=== PATIENT | female | born 1995 | race American Indian/Alaskan Native ===

== ENCOUNTER 2019-01-07 12:29 | Emergency (ER) | payer OTHER, SELFPAY ==
--- NOTE | 2019-01-07 12:43 | Emergency Department Report ---
Blank Doc - Documentation Documentation: This is a 23-year-old female that presents with generalized weakness, vomiting. Was diagnosed with UTI and taking Bactrim. Stated is getting worse. This initial assessment/diagnostic orders/clinical plan/treatment(s) is/are subject to change based on patient's health status, clinical progression and re- assessment by fellow clinical providers in the ED. Further treatment and workup at subsequent clinical providers discretion. Patient/guardians urged not to elope from the ED as their condition may be serious if not clinically assessed and managed. Initial orders include: 1- Patient sent to MAIN ED for further evaluation and treatment 2- code sepsis initiated 3- labs 4- protocol initiated
[2019-01-07] MEDS ORDERED: IBUPROFEN PO ONE (12:45)
[2019-01-07] MEDS ORDERED: NACL 0.9% 1000 ML 1,000 ML IV ONE ×2 (12:49→13:30)
[2019-01-07 13:26] LABS: Hematocrit 38.3 % (30.3-42.9); Hemoglobin 12.8 gm/dl (10.1-14.3); Mean Corpuscular HGB Conc 33 % (30-34); Mean Corpuscular Volume 81 fl (79-97); Platelet Count 190 K/mm3 (140-440); Red Blood Count 4.72 M/mm3 (3.65-5.03)
--- NOTE | 2019-01-07 13:30 | Emergency Department Report ---
ED General Adult HPI - General Chief complaint: Weakness Stated complaint: PASSED OUT Time Seen by Provider: 01/07/19 13:16 Source: patient Mode of arrival: Ambulatory Limitations: No Limitations - History of Present Illness Initial comments: Patient is a 23-year-old female that presents emergency with multiple complaints. Patient states he's been having weakness 2 days, fever and diarrhea 1 day. Patient states she was seen in urgent care 4 days ago and was diagnosed with urinary tract infection given Bactrim. Patient states that her symptoms have been worsening. Patient states she is also having a headache. Patient states that her headache is a 10 out of 10. Patient states her headache is worsening. Patient states that the pain is better with rest and worse with exertion. Patient denies blurry vision. Patient denies dizziness. Patient states she fell this morning but did not hit her head. Patient states she fell because of weakness. -: Sudden Severity scale (0 -10): 10 Consistency: constant Improves with: rest Worsens with: other Associated Symptoms: fever/chills, nausea/vomiting, weakness. denies: confusion, chest pain, cough, diaphoresis, headaches, loss of appetite, malaise, rash, seizure, shortness of breath, syncope - Related Data Home Medications Medication Instructions Recorded Confirmed Last Taken Sulfamethoxazole/Trimethoprim 1 each PO BID 01/07/19 01/07/19 Unknown [Bactrim DS TAB] Previous Rx's Medication Instructions Recorded Last Taken Type Promethazine [Phenergan 6.25 mg/5 10 ml PO Q6H PRN #120 ml 01/07/19 Unknown Rx ml ORAL LIQ] cephALEXin [Keflex] 500 mg PO Q6HR #32 capsule 01/07/19 Unknown Rx Allergies Allergy/AdvReac Type Severity Reaction Status Date / Time No Known Allergies Allergy Unverified 01/07/19 12:33 ED Review of Systems ROS: Stated complaint: PASSED OUT Other details as noted in HPI Constitutional: chills, fever, weakness Eyes: denies: eye pain, eye discharge, vision change ENT: denies: ear pain, throat pain Respiratory: denies: cough, shortness of breath, wheezing Cardiovascular: denies: chest pain, palpitations Endocrine: no symptoms reported Gastrointestinal: nausea, vomiting. denies: abdominal pain, diarrhea Genitourinary: denies: urgency, dysuria, discharge Musculoskeletal: denies: back pain, joint swelling, arthralgia Skin: denies: rash, lesions Neurological: denies: headache, weakness, paresthesias Psychiatric: denies: anxiety, depression Hematological/Lymphatic: denies: easy bleeding, easy bruising ED Past Medical Hx - Past Medical History Previous Medical History?: No - Surgical History Past Surgical History?: No - Family History Family history: no significant - Social History Smoking Status: Never Smoker Substance Use Type: None - Medications Home Medications: Home Medications Medication Instructions Recorded Confirmed Last Taken Type Promethazine [Phenergan 6.25 mg/5 10 ml PO Q6H PRN #120 ml 01/07/19 Unknown Rx ml ORAL LIQ] Sulfamethoxazole/Trimethoprim 1 each PO BID 01/07/19 01/07/19 Unknown History [Bactrim DS TAB] cephALEXin [Keflex] 500 mg PO Q6HR #32 capsule 01/07/19 Unknown Rx ED Physical Exam - General Limitations: No Limitations General appearance: alert, in no apparent distress - Head Head exam: Present: atraumatic, normocephalic - Eye Eye exam: Present: normal appearance, PERRL Pupils: Present: normal accommodation - ENT ENT exam: Present: mucous membranes dry - Neck Neck exam: Present: normal inspection - Respiratory Respiratory exam: Present: normal lung sounds bilaterally. Absent: respiratory distress - Cardiovascular Cardiovascular Exam: Present: regular rate, normal rhythm. Absent: systolic murmur, diastolic murmur, rubs, gallop - GI/Abdominal GI/Abdominal exam: Present: soft, normal bowel sounds. Absent: distended, tenderness, guarding - Extremities Exam Extremities exam: Present: normal inspection - Back Exam Back exam: Present: normal inspection - Neurological Exam Neurological exam: Present: alert, oriented X3 - Psychiatric Psychiatric exam: Present: normal affect, normal mood - Skin Skin exam: Present: warm, dry, intact, normal color. Absent: rash ED Course Vital Signs 01/07/19 01/07/19 01/07/19 12:42 13:51 14:00 Temperature 101.9 F H 100.0 F H Pulse Rate 110 H 99 H 94 H Respiratory 16 18 13 Rate Blood Pressure Blood Pressure 102/54 102/61 102/54 [Left] O2 Sat by Pulse 100 100 100 Oximetry 01/07/19 01/07/19 01/07/19 14:30 16:45 18:51 Temperature 98.7 F Pulse Rate 100 H 85 Respiratory 16 13 Rate Blood Pressure 99/60 100/60 Blood Pressure [Left] O2 Sat by Pulse 100 99 Oximetry - Reevaluation(s) Reevaluation #1: Patient is refusing head CT. Patient states she feels like this is because she is dehydrated. Patient is going to have the CT of the abdomen. 01/07/19 14:11 Patient states she is still feeling weak. Discussed all results with patient. Patient will be admitted to the hospitalist service. Patient agrees to plan of care. 01/07/19 16:03 - Consultations Consultation #1: Hospitalist consulted for admission. Hospitalist to admit patient. Hospitalist to assume care patient. 01/07/19 16:03 ED Medical Decision Making - Lab Data Result diagrams: 01/07/19 12:53 01/07/19 12:53 - Radiology Data Radiology results: report reviewed PROCEDURE: CT ABDOMEN PELVIS WO CON TECHNIQUE: Computerized axial tomography of the abdomen and pelvis was performed without intravenous contrast. This study is performed without intravascular contrast material and its sensitivity for abdominal and pelvic pathology, including neoplasms, inflammation, abscess, free fluid, thrombosis, arterial dissection and infarction, is reduced compared with a contrast enhanced study. CT DOSE LENGTH PRODUCT: 720.22 mGy-cm. HISTORY: UTI. Fever. Weakness. COMPARISONS: None currently available. FINDINGS: Abdomen: Lung bases and images of the heart are grossly unremarkable. Kidneys: 2.2 and 2.3 mm stones in the mid to inferior right and left kidneys. No hydronephrosis. No ureteral stones. Dense medullary pyramids may be related to calcinosis or normal variation. No perinephric stranding. Liver, stomach, spleen, pancreas, and adrenals are unremarkable. Gallbladder is not visualized and may be contracted or surgically removed. No aneurysm. No significant atherosclerotic disease. IVC is unremarkable. There is no periaortic or retroperitoneal adenopathy or mass. Solid and fluid stool noted within the colon. Air-fluid levels in the right colon. Mild distention. No wall thickening. No inflammatory changes. Fluid and solid stool also noted within the rectum. Small bowel loops are mildly distended with air-fluid levels. No obvious wall thickening. No obstructive pattern. Terminal ileum is unremarkable. Appendix is normal. No free air. No free fluid. Mesentery is unremarkable. Pelvis: Uterus: Limited images are unremarkable. Bladder: Unremarkable. No wall thickening. No stones. There is no pelvic mass or adenopathy. Inguinal regions are unremarkable. Bones: No suspicious osseous lesions on this limited examination of the skeleton. [place] static disease better evaluated with bone scan. Mild levocurvature or scoliosis of the thoracolumbar spine. IMPRESSION: * Punctate bilateral renal stones. No hydronephrosis. No perinephric standing. Bladder is unremarkable. * Bowel findings may represent a mild enteritis or enterocolitis without obstruction, perforation, or abscess. Differential diagnosis includes diarrhea and liquid diet. - Medical Decision Making Patient is a 23-year-old female with evidence of multiple complaints. Patient found to have dehydration. Patient artificial outpatient treatment. Patient will require admission to the hospitalist service. Patient agrees with plan of care. Patient's given 2 L of fluid and symptoms without improvement. Patient had a CT scan done. Patient's labs reviewed. CT shows gastroenteritis. - Differential Diagnosis pyelonephritis. UTI. Outpatient failure. N/D/D. fever/chills. Dehydrati Critical Care Time: Yes Critical care attestation.: If time is entered above; I have spent that time in minutes in the direct care of this critically ill patient, excluding procedure time. Critical Care Time: 35 minutes ED Disposition Clinical Impression: Nausea vomiting and diarrhea, Chills, Weakness, Dehydration, Hyponatremia, Gastroenteritis Fever Qualifiers: Fever type: unspecified Qualified Code(s): R50.9 - Fever, unspecified Headache Qualifiers: Headache type: unspecified Headache chronicity pattern: acute headache Intractability: not intractable Qualified Code(s): R51 - Headache UTI (urinary tract infection) Qualifiers: Urinary tract infection type: acute cystitis Hematuria presence: with hematuria Qualified Code(s): N30.01 - Acute cystitis with hematuria Disposition: OP ADMIT IP TO THIS HOSP Is pt being admited?: Yes Does the pt Need Aspirin: No Condition: Critical Prescriptions: cephALEXin [Keflex] 500 mg PO Q6HR #32 capsule Promethazine [Phenergan 6.25 mg/5 ml ORAL LIQ] 10 ml PO Q6H PRN #120 ml PRN Reason: Nausea And Vomiting Referrals: ASHISH MATIAS MD [Primary Care Provider] - 3-5 Days Forms: Work/School Release Form(ED) Time of Disposition: 16:02
[2019-01-07] MEDS ORDERED: ZOFRAN IV ONE (13:37)
[2019-01-07] MEDS ORDERED: ZOFRAN ONE (13:37)
[2019-01-07 13:41] LABS: Albumin 3.6 g/dL (3.9-5); Calcium 8.2 mg/dL (8.4-10.2)
[2019-01-07] MEDS ORDERED: MAXIPIME/NS 2 GM/100 ML 2 GM/100 ML BAG IV ONE (13:46)
[2019-01-07 14:14] LABS: Band Neutrophils # (Manual) 0.2 K/mm3; Basophils % (Manual) 0 % (0.0-1.8); RBC Morphology Normal; Total Cells Counted 100
[2019-01-07 14:15] LABS: Large Platelets Few; Platelet Estimate Consistent w Auto; Toxic Vacuolation 1+
--- NOTE | 2019-01-07 16:33 | Cat Scan Report ---
PROCEDURE: CT ABDOMEN PELVIS WO CON TECHNIQUE: Computerized axial tomography of the abdomen and pelvis was performed without intravenous contrast. This study is performed without intravascular contrast material and its sensitivity for abd ominal and pelvic pathology, including neoplasms, inflammation, abscess, free fluid, thrombosis, stacie rial dissection and infarction, is reduced compared with a contrast enhanced study. CT DOSE LENGTH PRODUCT: 720.22 mGy-cm. HISTORY: UTI. Fever. Weakness. COMPARISONS: None currently available. FINDINGS: Abdomen: Lung bases and images of the heart are grossly unremarkable. Kidneys: 2.2 and 2.3 mm stones in the mid to inferior right and left kidneys. No hydronephrosis. No u reteral stones. Dense medullary pyramids may be related to calcinosis or normal variation. No perinep hric stranding. Liver, stomach, spleen, pancreas, and adrenals are unremarkable. Gallbladder is not visualized and may be contracted or surgically removed. No aneurysm. No significant atherosclerotic disease. IVC is unremarkable. There is no periaortic or retroperitoneal adenopathy or mass. Solid and fluid stool noted within the colon. Air-fluid levels in the right colon. Mild distention. N o wall thickening. No inflammatory changes. Fluid and solid stool also noted within the rectum. Small bowel loops are mildly distended with air-fluid levels. No obvious wall thickening. No obstruc tive pattern. Terminal ileum is unremarkable. Appendix is normal. No free air. No free fluid. Mesentery is unremarkable. Pelvis: Uterus: Limited images are unremarkable. Bladder: Unremarkable. No wall thickening. No stones. There is no pelvic mass or adenopathy. Inguinal regions are unremarkable. Bones: No suspicious osseous lesions on this limited examination of the skeleton. Metastatic disease better evaluated with bone scan. Mild levocurvature or scoliosis of the thoracolumbar spine. IMPRESSION: * Punctate bilateral renal stones. No hydronephrosis. No perinephric standing. Bladder is unremarkab le. * Bowel findings may represent a mild enteritis or enterocolitis without obstruction, perforation, o r abscess. Differential diagnosis includes diarrhea and liquid diet. This document is electronically signed by Scott Tatum MD., January 07 2019 04:31:54 PM ET
[2019-01-07 17:37] LABS: HCG Qualitative,Urine Negative (Negative)
[2019-01-07 17:39] LABS: Bacteria,Urine 3+ /HPF (Negative); Bilirubin,Urine SM (Negative); Blood,Urine NEG (Negative); Color,Urine Amber (Yellow); Mucus,Urine 3+ /HPF
[2019-01-07 17:48] LABS: Ictotest,Urine Negative (Negative)
[2019-01-07] MEDS ORDERED: ROCEPHIN/NS 2 GM/100 ML 2 GM/100 ML BAG IV SCH (18:00)
[2019-01-07 18:51] VITALS: BP 100/60
== END 2019-01-07 19:07 | disposition admitted as inpatient to this hospital (09) ==
LOC: ED 12:29
DX: E86.0 Dehydration (principal); K52.9 Noninfective gastroenteritis and colitis, unspecified; R11.2 Nausea with vomiting, unspecified; N39.0 Urinary tract infection, site not specified; E87.1 Hypo-osmolality and hyponatremia
CPT/HCPCS: 36415; 74176; 80053; 81001; 81025; 82140; 84703; 85007; 85025; 87040; 87086; 96365; 96367; 96375; 99284; J0692; J0696; J2405; J7030

== ENCOUNTER 2019-11-14 02:15 | Outpatient (CLI) | payer MEDICAID ==
[2019-11-14 04:26] VITALS: BP 121/78
--- NOTE | 2019-11-14 06:26 | Ultrasound Report ---
Limited obstetrical ultrasound INDICATION: Term COMPARISON: None FINDINGS: Single intrauterine is seen in a cephalic position. Amniotic fluid volume appears appropriate for this stage of and ANTHONY is within normal limits at 12.6 cm. cardiac ac tivity was documented at 143 bpm. Placenta is anterior and free of the internal cervical os but is no t studied in detail. anatomical survey was not performed and dating was not performed. BIOPHYSICAL PROFILE breathing movements: 2/2 movements: 2/2 posture and tone tone: 2/2 Qualitative amniotic fluid volume: 2/2 Total score: 8/8, within normal limits Signer Name: Yan Buchanan MD Signed: 11/14/2019 6:22 AM Workstation Name: [id number]
--- NOTE | 2019-11-14 11:38 | Event Note ---
Date: 11/14/19 Triage note: 24 year old female presents at 36 weeks to rule out labor. Patient reports infrequent mild cramping. She denies leaking of fluid or vaginal bleeding. She reports active movement. She was observed for a few hours in triage and was determined not to be in active labor (no cervical change and cervix exam same as she reported it to be during her last office visit). BPP 8/8 and ANTHONY 12.6 cm. Patient was discharged home with instructions to return if regular contractions, leaking of fluid, vaginal bleeding, decreased movement, or any other problems. She was advised to follow up at [facility] early this week. Rx terconazole for yeast infection called to [facility] on [address] and left on voicemail.
== END 2019-11-14 05:45 | disposition home or self-care (01) ==
LOC: TRG 02:15 → APU 02:16 → TRG 05:45
PROVIDERS: ATTEND Obstetrics & Gynecology
DX: O47.03 False labor before 37 completed weeks of gestation, third trimester (principal); O30.003 Twin pregnancy, unspecified number of placenta and unspecified number of amniotic sacs, third trimester; Z3A.36 36 weeks gestation of pregnancy
CPT/HCPCS: 59025; 76815; 76819

== ENCOUNTER 2019-11-21 19:46 | Inpatient (IN) | payer MEDICAID ==
[2019-11-21] MEDS ORDERED: TERBUTALINE 1 MG/1 ML INJ SUB-Q PRN (20:24)
[2019-11-21] MEDS ORDERED: AMPICILLIN/NS 2 GM/100 ML 2 GM/100 ML BAG IV ONE (20:24)
[2019-11-21] MEDS ORDERED: fentaNYL 100 MCG/2 ML INJ IV PRN (20:24)
[2019-11-21] MEDS ORDERED: LIDOCAINE (2%) 20 MG/1 ML VIAL 20 ML MDV INFILTRATI ONE (20:24)
[2019-11-21] MEDS ORDERED: ePHEDrine SULFATE 50 MG/1 ML INJ IV PRN (20:24)
--- NOTE | 2019-11-21 20:30 | History and Physical Report ---
History of Present Illness Date of examination: 11/21/19 Date of admission: 11/21/2019 Chief complaint: Contractions History of present illness: 24 year old female [id number] presents with contractions and leaking of clear fluid from vagina since 7:30 PM today. Patient denies vaginal bleeding. Patient received care at [facility] and records are available. LMP 03/13/2019. EDC 12/07/2019 (based on US done at 11 weeks, 6 days). significant for the following: excessive weight gain, GBS positive, low lying placenta, history of prediabetes, history of child with defects (cerebral hematoma), vitamin D deficiency (supplemented with vitamin D). labs are as follows: O+, antibody screen negative, rubella immune, hepatitis B surface antigen negative, HIV negative, RPR nonreactive, gonorrhea negative, chlamydia negative, trichomonas negative, hemoglobin electrophoresis AA, AFP negative, 1 hour sugar test 115, GBS positive. Past History Past Medical History: other (Obesity, prediabetes) Past Surgical History: other (EAB times 1) [facility] History: denies: abnormal PAP smear, chlamydia, gonorrhea, hepatitis B, hepatitis C, herpes, HIV, syphilis, trichomonas Family/Genetic History: diabetes, other (cerebral hematoma (son), truncus common) Social history: lives with family, full code. denies: smoking, alcohol abuse, prescription drug abuse, IV drug use - Obstetrical History Expected Date of Delivery: 12/07/19 Actual Gestation: 37 Week(s) 5 Day(s) : 5 Para: 2 Hx # Term Pregnancies: 2 Number of Pregnancies: 0 Spontaneous Abortions: 1 Induced : 1 Number of Living Children: 2 Medications and Allergies Allergies Allergy/AdvReac Type Severity Reaction Status Date / Time No Known Allergies Allergy Unverified 01/07/19 12:33 Home Medications Medication Instructions Recorded Confirmed Last Taken Type Vit-Fe Fumar-FA [ 1 tab PO QDAY 11/09/19 11/09/19 Unknown History Vitamin] Active Meds: Active Medications Ephedrine Sulfate (Ephedrine Sulfate) 10 mg IV Q2M PRN PRN Reason: Hypotension Fentanyl (Sublimaze) 100 mcg IV Q2H PRN PRN Reason: Pain,Severe (7-10) LABOR PAIN Oxytocin/Sodium Chloride (Pitocin/Ns 20 Unit/1000ml Drip) 20 units in 1,000 mls @ 125 mls/hr IV DIRECT BERNABE Lactated Ringer's (Lactated Ringers) 1,000 mls @ 125 mls/hr IV DIRECT BERNABE Ampicillin Sodium (Ampicillin/Ns 2 Gm/100 Ml) 2 gm in 100 mls @ 100 mls/hr IV ONCE ONE; Protocol Stop: 11/21/19 21:23 Ampicillin Sodium (Ampicillin/Ns 1 Gm/50 Ml) 1 gm in 50 mls @ 100 mls/hr IV Q4HR BERNABE; Protocol Lidocaine (Xylocaine 2%) 20 ml INFILTRATI ONCE ONE Stop: 11/21/19 20:25 Terbutaline Sulfate (Brethine) 0.25 mg SUB-Q ONCE PRN PRN Reason: Hyperstimulation/Hypertonicity Review of Systems All systems: negative (contractions) - Vital Signs Vital signs: Vital Signs Temp Pulse Resp BP Pulse Ox 99.9 F H 101 H 18 133/83 98 11/21/19 19:57 11/21/19 19:57 11/21/19 19:57 11/21/19 19:57 11/21/19 19:57 Temp Pulse Resp BP Pulse Ox 99.9 F H 91 H 18 133/83 98 11/21/19 19:57 11/21/19 20:24 11/21/19 19:57 11/21/19 19:59 11/21/19 20:24 - Physical Exam Abdomen: Positive: normal appearance, soft. Negative: distention, tenderness, guarding, rigidity Genitourinary (Female): Positive: normal external genitalia, normal perenium. Negative: perineal/vulvar lesions Vagina: Positive: other (clear fluid) Uterus: Positive: enlarged. Negative: tender Anus/Rectum: Positive: normal perianal skin Extremities: Positive: normal. Negative: tenderness - Obstetrical FHR: category 1 Uterine Contraction Monitor Mode: External Cervical Dilatation: 7 Cervical Effacement Percentage: 90 station: -1 Uterine Contraction Pattern: Regular Uterine Contraction Intensity: Moderate Results All other labs normal. Assessment and Plan A: at 37 weeks, 5 days gestation. SROM. Active labor. GBS positive. P: Admit. EFM. GBS prophylaxis. Anticipate vaginal .
[2019-11-21] MEDS ORDERED: LACTATED RINGERS 1,000 ML IV SCH (21:00)
[2019-11-21 21:12] LABS: Basophils % (Auto) 0.3 % (0.0-1.8); Eosinophils # (Auto) 0.1 K/mm3 (0.0-0.4); Eosinophils % (Auto) 0.8 % (0.0-4.3); Hematocrit 36.8 % (30.3-42.9); Hemoglobin 12.1 gm/dl (10.1-14.3); Lymphocytes # (Auto) 1.4 K/mm3 (1.2-5.4); Lymphocytes % (Auto) 17.6 % (13.4-35.0); Mean Corpuscular HGB Conc 33 % (30-34); Mean Corpuscular Volume 82 fl (79-97); Platelet Count 250 K/mm3 (140-440); Red Blood Count 4.46 M/mm3 (3.65-5.03); Red Cell Distribution Width 14.8 % (13.2-15.2)
[2019-11-21] MEDS: OXYTOCIN 20 UNIT/1000ML DRIP 20 UNITS/1,000 ML BAG IV SCH ×2 (22:55→23:39)
[2019-11-21] MEDS ORDERED: MAGNESIUM HYDROXIDE (MOM) ORAL LIQD UDC PO PRN (23:00)
[2019-11-21] MEDS ORDERED: LANOLIN/ZINC/DIMETHICONE (LANSINOH) 7 GM TP PRN (23:00)
[2019-11-21] MEDS ORDERED: WITCH HAZEL/ GLYCERIN PAD TP PRN (23:00)
[2019-11-21] MEDS ORDERED: HYDROcodone/ACETAMINOPHEN 5-325 MG TAB PO PRN (23:00)
--- NOTE | 2019-11-21 23:08 | Procedure Note ---
OB Delivery Note - Delivery Date of Delivery: 11/21/19 Surgeon: MARQUISE RAY Estimated blood loss: 200cc - Vaginal Delivery presentation: vertex Delivery position: OA Intrapartum events: precipitous labor- <3hr Delivery induction: none Delivery monitor: external FHT, external uterine Route of delivery: Delivery placenta: spontaneous Delivery cord: 3 umbilical vessels Episiotomy: none Delivery laceration: none Anesthesia: none Delivery comments: Spontaneous vaginal delivery at 22:47 of liveborn female infant weighing 5 lb. 10 oz. over intact perineum with apgars of 8/9. Baby placed skin to skin with mom immediately after . Spontaneous cry and respirations. Baby dried and suctioned with bulb. 3 vessel cord double clamped and cut. Cord blood obtained. Spontaneous delivery of intact placenta and membranes by grimes mechanism. EBL 200 cc. Pitocin to IV fluids after delivery of placenta. Fundus firm and midline. No lacerations noted. Vaginal sweep negative. Sponge count correct. Mother and baby stable.
[2019-11-21] MEDS: IBUPROFEN 600 MG TAB PO SCH (23:38)
[2019-11-22] MEDS ORDERED: AMPICILLIN/NS 1 GM/50 ML 1 GM/50 ML BAG IV SCH (00:28)
[2019-11-22] MEDS: IBUPROFEN 600 MG TAB PO SCH ×3 (06:00→17:22)
--- NOTE | 2019-11-22 10:28 | Progress Note ---
Assessment and Plan - Patient Problems (1) Status post normal vaginal delivery Current Visit: Yes Status: Acute Plan to address problem: PPD 1 - stable Continue routine orders Discharge to home 11/23/19 Follow-up at [facility] as needed or in 6 weeks for exam Subjective - Subjective Date of service: 11/22/19 Principal diagnosis: PPD #1, s/p Interval history: see [facility] - H&P and OB Delivery Procedure Note Patient reports: appetite normal, voiding normally, pain well controlled, ambulating normally, no dizzy ambulation [place]: doing well, other (breast and bottle feeding) Objective - Vital Signs Latest vital signs: Vital Signs Temp Pulse Resp BP BP Pulse Ox 11/22/19 08:30 98 F 77 20 136/81 11/22/19 06:00 18 11/22/19 01:33 97.9 F 18 96/64 11/22/19 01:20 98.2 F 74 18 107/68 11/22/19 01:01 74 107/68 11/22/19 00:46 80 119/74 11/22/19 00:31 73 111/62 11/22/19 00:16 80 106/56 11/22/19 00:01 75 110/65 11/21/19 23:46 73 120/73 11/21/19 23:42 77 99 11/21/19 23:37 71 99 11/21/19 23:32 73 100 11/21/19 23:31 73 122/76 11/21/19 23:28 34 L 94 11/21/19 23:27 84 98 11/21/19 23:22 85 99 11/21/19 23:17 86 99 11/21/19 23:16 90 120/63 11/21/19 23:12 84 98 11/21/19 23:07 82 99 11/21/19 23:03 97.9 F 89 20 127/66 99 11/21/19 23:02 88 100 11/21/19 23:01 90 127/66 11/21/19 22:57 97 H 99 11/21/19 22:52 95 H 99 11/21/19 22:47 102 H 99 11/21/19 22:42 84 98 11/21/19 22:37 90 99 11/21/19 22:32 98 H 100 11/21/19 22:27 109 H 99 11/21/19 22:22 93 H 99 11/21/19 22:17 94 H 99 11/21/19 22:12 86 97 11/21/19 22:07 77 98 11/21/19 22:02 79 99 11/21/19 21:57 87 98 11/21/19 21:52 80 98 11/21/19 21:47 81 98 11/21/19 21:42 86 99 11/21/19 21:37 86 98 11/21/19 21:32 82 98 11/21/19 21:27 84 99 11/21/19 21:22 88 99 11/21/19 21:21 98.9 F 91 H 18 118/86 100 11/21/19 21:17 89 98 11/21/19 21:12 86 99 11/21/19 21:07 91 H 98 11/21/19 21:02 82 100 11/21/19 20:37 90 118/86 11/21/19 20:24 91 H 98 11/21/19 20:19 94 H 98 11/21/19 20:14 101 H 97 11/21/19 20:09 93 H 98 11/21/19 20:04 95 H 97 11/21/19 19:59 89 133/83 97 11/21/19 19:57 99.9 F H 101 H 18 133/83 98 Intake and Output 11/21/19 11/22/19 11/22/19 23:59 07:59 15:59 Intake Total 91.667 480 320 Output Total 400 600 Balance 91.667 80 -280 Intake: IV 91.667 PITOCin/NS 20 UNIT/1000ML 91.667 DRIP 20 units In 1,000 ml @ 125 mls/hr IV DIRECT BERNABE Rx#:[id number] Oral 320 Intake, Free Water 480 Output: Urine 400 600 Void 400 600 Other: Total, Intake Amount 320 Total, Output Amount 400 600 # Voids Void 1 2 Weight 101.605 kg - Exam Cardiovascular: Present: Regular rate Lungs: Present: Clear to auscultation Abdomen: Present: soft Vulva: both: normal Uterus: Present: normal, firm, fundal height at umbilicus Extremities: Present: normal Comments: small lochia - Labs Labs: Abnormal lab results 05/03/20 Range/Units 20:45 MCH 27 L (28-32) pg Burt % (Auto) 12.0 H (0.0-7.3) % Burt # 1.0 H (0.0-0.8) K/mm3
--- NOTE | 2019-11-22 10:33 | Discharge Summary ---
Providers - Providers Date of Admission: 11/21/19 20:24 Date of discharge: 11/23/19 Attending physician: KECIA WALLACE MD Primary care physician: KECIA WALLACE MD Hospitalization Reason for admission: active labor, IUP at term Delivery: Episiotomy: none Laceration: none Other procedures: none complications: none Discharge diagnosis: IUP at term delivered Joice baby: female Hospital course: Uncomplicated Condition at discharge: Stable Disposition: CO-01 TO HOME OR SELFCARE - Discharge Diagnoses (1) Status post normal vaginal delivery Status: Acute Plan - Provider Discharge Summary Activity: routine, no sex for 6 weeks, no heavy lifting 4 weeks, no strenuous exercise Diet: routine Instructions: routine Additional instructions: [] Smoking cessation referral if applicable(refer to patient education folder for contact #) [] Refer to [facility] Booklet Call your doctor immediately for: * Fever > 100.5 * Heavy vaginal bleeding ( >1 pad per hour) * Severe persistent headache * Shortness of breath * Reddened, hot, painful area to leg or breast * Drainage or odor from incision. * Keep incision clean and dry at all times and follow doctor's instructions regarding bathing/showering - Follow up plan Follow up: KECIA WALLACE MD [Primary Care Provider] - 6 Weeks (Follow-up at [facility] as needed or in 6 weeks for exam)
[2019-11-22 12:11] LABS: Hematocrit 36.5 % (30.3-42.9); Hemoglobin 11.9 gm/dl (10.1-14.3)
[2019-11-23] MEDS: IBUPROFEN 600 MG TAB PO SCH ×2 (12:25→17:37)
[2019-11-23 16:15] VITALS: BP 121/79
== END 2019-11-23 20:10 | disposition home or self-care (01) | DRG 775 ==
LOC: TRG 19:46 → APU 19:51 → TRG 20:24 → LD 20:24 → OB 11-22 01:46
PROVIDERS: ADMIT Obstetrics & Gynecology; ATTEND Obstetrics & Gynecology
PROC: 10E0XZZ Delivery of Products of Conception, External Approach (ICD-10-PCS; principal; 2019-11-21)
DX: O99.824 Streptococcus B carrier state complicating childbirth (principal); O99.214 Obesity complicating childbirth; E66.9 Obesity, unspecified; O62.3 Precipitate labor; Z83.3 Family history of diabetes mellitus; Z82.0 Family history of epilepsy and other diseases of the nervous system; Z3A.37 37 weeks gestation of pregnancy; Z37.0 Single live birth
CPT/HCPCS: 36415; 85014; 85018; 85025; 86592; 86850; 86900; 86901; G0378; A6250; J0290; J2590; J7120